=== PATIENT | male | born 1965 | race American Indian/Alaskan Native ===

== ENCOUNTER 2017-11-11 10:04 | Emergency (ER) | payer OTHER, BC ==
[2017-11-11] MEDS ORDERED: MOTRIN PO ONE (11:37)
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
[2017-11-11] MEDS ORDERED: CATAPRES PO ONE (11:46)
[2017-11-11 12:28] VITALS: BP 143/91
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
== END 2017-11-11 15:17 | disposition home or self-care (01) ==
LOC: ED 10:04
DX: S46.911A Strain of unspecified muscle, fascia and tendon at shoulder and upper arm level, right arm, initial encounter (principal); S13.4XXA Sprain of ligaments of cervical spine, initial encounter; S39.012A Strain of muscle, fascia and tendon of lower back, initial encounter; I10 Essential (primary) hypertension; E11.9 Type 2 diabetes mellitus without complications; F17.200 Nicotine dependence, unspecified, uncomplicated; V49.49XA Driver injured in collision with other motor vehicles in traffic accident, initial encounter; Y93.89 Activity, other specified; Y92.89 Other specified places as the place of occurrence of the external cause; Y99.8 Other external cause status
CPT/HCPCS: 72040; 72100

== ENCOUNTER 2019-08-24 14:15 | Emergency (ER) | payer BC, OTHER ==
--- NOTE | 2019-08-24 16:35 | Event Note ---
ED Screening Note Date of service: 08/24/19 Time: 16:34 ED Screening Note: This initial assessment/diagnostic orders/clinical plan/treatment(s) is/are subject to change based on patients health status, clinical progression and re- assessment by fellow clinical providers in the ED. Further treatment and workup at subsequent clinical providers discretion. Patient/guardian urged not to elope from the ED as their condition may be serious if not clinically assessed and managed. Initial orders include: 54yo M states that he was sent here due to a high bp reading at an urgent care. he states that he has not taken his medication for HTN or Type 2 DM.
[2019-08-24 17:03] LABS: Hematocrit 42.9 % (35.5-45.6); Hemoglobin 14.7 gm/dl (11.8-15.2); Mean Corpuscular HGB Conc 34 % (32-34); Mean Corpuscular Volume 101 fl (84-94); Platelet Count 216 K/mm3 (140-440); Red Blood Count 4.26 M/mm3 (3.65-5.03); Red Cell Distribution Width 13.1 % (13.2-15.2)
[2019-08-24 17:24] LABS: Alanine Aminotransferase 26 units/L (7-56); Albumin 4.4 g/dL (3.9-5); BUN/Creatinine Ratio 16; Blood Urea Nitrogen 23 mg/dL (9-20); Calcium 9.5 mg/dL (8.4-10.2); Hemolysis Index 6
--- NOTE | 2019-08-24 20:00 | Emergency Department Report ---
ED General Adult HPI - General Chief complaint: High BP Stated complaint: HBP Time Seen by Provider: 08/24/19 16:30 Source: patient Mode of arrival: Ambulatory Limitations: No Limitations - History of Present Illness Initial comments: Patient is a 54-year-old male presents emergency room with complaints of high blood pressure that occurred today. He states that he went to see his chiropractor and they told him that his blood pressure was elevated. He states that occasionally he does get blurry vision. He denies any headache, numbness, weakness, tingling, chest pain, shortness of breath. He denies any blurry vision currently. He has a past medical history of hypertension and diabetes. He states that due to loss of insurance he has not taken medications in 1 year. He states that he previously used to be on metformin and insulin for his di abetes. He states that he does not know what his blood pressure medication was. He states that lisinopril did cause swelling in him and he cannot take lisinopril. - Related Data Previous Rx's Medication Instructions Recorded Last Taken Type Cyclobenzaprine [Flexeril] 10 mg PO TID PRN #15 tablet 11/22/15 Unknown Rx Ibuprofen [Motrin 800 MG tab] 800 mg PO Q8HR PRN #30 tablet 11/22/15 Unknown Rx Cyclobenzaprine [Flexeril] 10 mg PO QHS PRN #10 tablet 11/11/17 Unknown Rx Ibuprofen [Motrin] 600 mg PO Q8H PRN #30 tablet 11/11/17 Unknown Rx amLODIPine [Norvasc] 5 mg PO DAILY #30 tab 11/11/17 Unknown Rx amLODIPine 10 mg PO DAILY #60 tab 08/24/19 Unknown Rx metFORMIN [Glucophage] 500 mg PO BID #120 tablet 08/24/19 Unknown Rx Allergies Allergy/AdvReac Type Severity Reaction Status Date / Time Penicillins AdvReac Unknown Verified 11/21/15 20:00 ED Review of Systems ROS: Stated complaint: HBP Other details as noted in HPI Comment: All other systems reviewed and negative ED Past Medical Hx - Past Medical History Previous Medical History?: Yes Hx Hypertension: Yes Hx Diabetes: Yes Hx Arthritis: Yes (GOUT) - Surgical History Past Surgical History?: Yes Hx Appendectomy: Yes Additional Surgical History: hernia repair - Social History Smoking Status: Current Some Day Smoker Substance Use Type: None - Medications Home Medications: Home Medications Medication Instructions Recorded Confirmed Last Taken Type Cyclobenzaprine [Flexeril] 10 mg PO TID PRN #15 tablet 11/22/15 Unknown Rx Ibuprofen [Motrin 800 MG tab] 800 mg PO Q8HR PRN #30 tablet 11/22/15 Unknown Rx Cyclobenzaprine [Flexeril] 10 mg PO QHS PRN #10 tablet 11/11/17 Unknown Rx Ibuprofen [Motrin] 600 mg PO Q8H PRN #30 tablet 11/11/17 Unknown Rx amLODIPine [Norvasc] 5 mg PO DAILY #30 tab 11/11/17 Unknown Rx amLODIPine 10 mg PO DAILY #60 tab 08/24/19 Unknown Rx metFORMIN [Glucophage] 500 mg PO BID #120 tablet 08/24/19 Unknown Rx ED Physical Exam - General Limitations: No Limitations General appearance: alert, in no apparent distress - Head Head exam: Present: atraumatic, normocephalic - Eye Eye exam: Present: normal appearance, PERRL, EOMI - ENT ENT exam: Present: mucous membranes moist - Respiratory Respiratory exam: Present: normal lung sounds bilaterally. Absent: respiratory distress, wheezes, rales, rhonchi, stridor, chest wall tenderness, accessory muscle use, decreased breath sounds, prolonged expiratory - Cardiovascular Cardiovascular Exam: Present: regular rate, normal rhythm, normal heart sounds. Absent: systolic murmur, diastolic murmur, rubs, gallop - Neurological Exam Neurological exam: Present: alert, oriented X3, CN II-XII intact, normal gait. Absent: motor sensory deficit - Psychiatric Psychiatric exam: Present: normal affect, normal mood - Skin Skin exam: Present: warm, dry, intact ED Course Vital Signs 08/24/19 08/24/19 14:59 20:13 Temperature 98.2 F Pulse Rate 91 H 75 Respiratory 18 17 Rate Blood Pressure 173/116 Blood Pressure 203/115 [Right] O2 Sat by Pulse 97 98 Oximetry ED Medical Decision Making - Lab Data Result diagrams: 08/24/19 16:45 08/24/19 16:45 Lab Results 08/24/19 08/24/19 Range/Units 16:45 16:45 WBC 4.3 L (4.5-11.0) K/mm3 RBC 4.26 (3.65-5.03) M/mm3 Hgb 14.7 (11.8-15.2) gm/dl Hct 42.9 (35.5-45.6) % MCV 101 H (84-94) fl MCH 35 H (28-32) pg MCHC 34 (32-34) % RDW 13.1 L (13.2-15.2) % Plt Count 216 (140-440) K/mm3 Sodium 137 (137-145) mmol/L Potassium 4.4 (3.6-5.0) mmol/L Chloride 99.3 (98-107) mmol/L Carbon Dioxide 23 (22-30) mmol/L Anion Gap 19 mmol/L BUN 23 H (9-20) mg/dL Creatinine 1.4 (0.8-1.5) mg/dL Estimated GFR > 60 ml/min BUN/Creatinine Ratio 16 % Glucose 224 H (75-100) mg/dL Calcium 9.5 (8.4-10.2) mg/dL Total Bilirubin 0.60 (0.1-1.2) mg/dL AST 32 (5-40) units/L ALT 26 (7-56) units/L Alkaline Phosphatase 72 (35-129) units/L Total Protein 7.5 (6.3-8.2) g/dL Albumin 4.4 (3.9-5) g/dL Albumin/Globulin Ratio 1.4 % - Medical Decision Making Patient is a 54-year-old male presents emergency room with complaints of high blood pressure that occurred today. He states that he went to see his chiropractor and they told him that his blood pressure was elevated. He states that occasionally he does get blurry vision. He denies any headache, numbness, weakness, tingling, chest pain, shortness of breath. He denies any blurry vision currently. He has a past medical history of hypertension and diabetes. He states that due to loss of insurance he has not taken medications in 1 year. He states that he previously used to be on metformin and insulin for his diabetes. He states that he does not know what his blood pressure medication was. He states that lisinopril did cause swelling in him and he cannot take lisinopril. Vitals with elevated blood pressure otherwise normal vitals. Patient currently has asymptomatic elevated blood pressure. According to the up-to-date medical literature it does not recommend emergently lowering asymptomatic blood pressure in the emergency department. Labs are stable. Kidney function is stable. No neurological deficits on exam. Blood sugar is 224. Patient given prescription for amlodipine and metformin. Patient does not need insulin at this time, will start patient on metformin for glycemic control at this time and have him follow-up with a primary care physician. Also discussed lifestyle modifications in detail with patient. advised pt Please take medication as prescribed. Please stop smoking. Increase your water intake. Please eat a low-sodium, low sugar, low carb diet. Incorporate 30 minutes of daily exercise. Please follow-up with a primary care doctor. Keep a blood pressure log and log your blood pressure 3 times a day. Please take this log to the primary care doctor. Return to the emergency room immediately for any new or worsening symptoms. Please follow-up with the appointment setter, due to your diabetes you need to have yearly eye screenings. Critical care attestation.: If time is entered above; I have spent that time in minutes in the direct care of this critically ill patient, excluding procedure time. 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 Please stop smoking. Increase your water intake. Please eat a low-sodium, low sugar, low carb diet. Incorporate 30 minutes of daily exercise. Please follow-up with a primary care doctor. Keep a blood pressure log and log your blood pressure 3 times a day. Please take this log to the primary care doctor. Return to the emergency room immediately for a ny new or worsening symptoms. Please follow-up with the appointment setter, due to your diabetes you need to have yearly eye screenings. Prescriptions: amLODIPine 10 mg PO DAILY #60 tab metFORMIN [Glucophage] 500 mg PO BID #120 tablet Referrals: ELA HANDLEY MD [Staff Physician] - 2-3 Days [facility] [Outside] - 2-[address] [facility] [Outside] - 2-3 Days [facility] [Provider Group] - 2-3 Days Time of Disposition: 20:00 Print Language: UKRAIN[place]
[2019-08-24 20:15] VITALS: BP 203/115
== END 2019-08-24 20:13 | disposition home or self-care (01) ==
LOC: ED 14:15
DX: I10 Essential (primary) hypertension (principal); E11.9 Type 2 diabetes mellitus without complications; M10.9 Gout, unspecified; F17.200 Nicotine dependence, unspecified, uncomplicated; Z98.890 Other specified postprocedural states; Z79.899 Other long term (current) drug therapy; Z79.4 Long term (current) use of insulin; Z88.0 Allergy status to penicillin; Z90.49 Acquired absence of other specified parts of digestive tract
CPT/HCPCS: 36415; 80053; 85027; 99283

== ENCOUNTER 2020-10-09 04:46 | Emergency (ER) | payer SELFPAY ==
[2020-10-09 07:28] LABS: Basophils % (Auto) 0.5 % (0.0-1.8); Hemoglobin 14.4 gm/dl (11.8-15.2); Lymphocytes # (Auto) 0.6 K/mm3 (1.2-5.4); Lymphocytes % (Auto) 9.6 % (13.4-35.0); Mean Corpuscular HGB Conc 35 % (32-34); Mean Corpuscular Volume 97 fl (84-94); Monocytes # (Auto) 0.2 K/mm3 (0.0-0.8); Monocytes % (Auto) 3.7 % (0.0-7.3); Platelet Count 237 K/mm3 (140-440); Red Blood Count 4.22 M/mm3 (3.65-5.03); Red Cell Distribution Width 13.7 % (13.2-15.2)
[2020-10-09 07:49] LABS: Alanine Aminotransferase 15 units/L (7-56); Albumin 4.4 g/dL (3.9-5); BUN/Creatinine Ratio 14; Blood Urea Nitrogen 14 mg/dL (9-20); Calcium 9.3 mg/dL (8.4-10.2); Hemolysis Index 5
[2020-10-09] MEDS ORDERED: ALUM-MAG HYDROXIDE-SIMETHICONE 200-200-20MG/5ML ORAL LIQD 30 ML PO ONE (11:11)
[2020-10-09] MEDS ORDERED: LIDOCAINE VISCOUS 2% 15 ML ORAL LIQD PO ONE (11:11)
[2020-10-09] MEDS ORDERED: ONDANSETRON 4 MG/2 ML INJ IV ONE (11:12)
--- NOTE | 2020-10-09 12:08 | Cat Scan Report ---
CT ABDOMEN AND PELVIS WITH CONTRAST INDICATION / CLINICAL INFORMATION: upper abdominal pain. TECHNIQUE: Axial CT images were obtained through the abdomen and pelvis after 100 mL Omni [address] scans at this location are performed using CT dose reduction for ALARA by means of automated expos ure control. COMPARISON: None available. FINDINGS: LOWER CHEST: No significant abnormality. LIVER: No significant abnormality. GALLBLADDER: No significant abnormality. BILE DUCTS: No significant abnormality. PANCREAS: No significant abnormality. SPLEEN: No significant abnormality. ADRENALS: No significant abnormality. RIGHT KIDNEY / URETER: No significant abnormality. LEFT KIDNEY / URETER: No significant abnormality. STOMACH / SMALL BOWEL: No significant abnormality. No mechanical bowel obstruction or significant inf lammation. COLON: Mild colonic diverticulosis without diverticulitis. APPENDIX: No significant abnormality. PERITONEUM: No free fluid. No free air. No fluid collection. LYMPH NODES: No significant adenopathy. AORTA / ARTERIES: Mild atherosclerotic calcification without acute abnormality. IVC / VEINS: No significant abnormality. URINARY BLADDER: No significant abnormality. REPRODUCTIVE ORGANS: No significant abnormality. ADDITIONAL FINDINGS: None. SKELETAL SYSTEM: Mild multilevel degenerative changes are noted of the spine most prominent at L5-S1. No aggressive osseous lesions. Mild bilateral hip arthrosis. IMPRESSION: 1. No acute inflammatory process of the abdomen or pelvis. 2. Mild diverticulosis without diverticulitis. Signer Name: Kayode Ibarra MD Signed: 10/09/2020 12:03 PM Workstation Name: [id number]
[2020-10-09 13:08] LABS: Bilirubin,Urine NEG (Negative); Blood,Urine NEG (Negative); Color,Urine Straw (Yellow); Urobilinogen,Urine < 2.0 mg/dL (<2.0); WBC,Urine < 1.0 /HPF (0.0-6.0)
--- NOTE | 2020-10-09 14:11 | Emergency Department Report ---
ED Abdominal Pain HPI - General Chief Complaint: Abdominal Pain Stated Complaint: TROUBLE BREATHING/STOMACH PAIN Time Seen by Provider: 10/09/20 11:02 Source: patient Mode of arrival: Ambulatory Limitations: No Limitations - History of Present Illness Initial Comments: 55-year-old male, history of hypertension, diabetes, gout, presents to ED with epigastric pain since last night. Patient states the pain started after eating some spicy chicken wings. Patient states he feels like he has a knot in his upper abdomen that is cutting his breath short secondary to the pain. When the pain eases up he is able to breathe okay. States the pain feels sharp in nature. He reports some nausea and vomiting, denies fever or diarrhea. Denies any radiating pain. Blood pressure is elevated, patient states he has been compliant with his medication but has not taken it this morning because he was in the waiting room all night. MD Complaint: abdominal pain -: Last night Location: epigastric Radiation: none Migration to: no migration Severity: moderate Quality: sharp Consistency: constant Improves With: nothing Worsens With: nothing Associated Symptoms: nausea, vomiting. denies: diarrhea, fever - Related Data Previous Rx's Medication Instructions Recorded Last Taken Type Cyclobenzaprine [Flexeril] 10 mg PO TID PRN #15 tablet 11/22/15 Unknown Rx Ibuprofen [Motrin 800 MG tab] 800 mg PO Q8HR PRN #30 tablet 11/22/15 Unknown Rx Cyclobenzaprine [Flexeril] 10 mg PO QHS PRN #10 tablet 11/11/17 Unknown Rx Ibuprofen [Motrin] 600 mg PO Q8H PRN #30 tablet 11/11/17 Unknown Rx amLODIPine [Norvasc] 5 mg PO DAILY #30 tab 11/11/17 Unknown Rx amLODIPine 10 mg PO DAILY #60 tab 08/24/19 Unknown Rx metFORMIN [Glucophage] 500 mg PO BID #120 tablet 08/24/19 Unknown Rx Dicyclomine [Bentyl] 20 mg PO QID PRN #20 tablet 10/09/20 Unknown Rx Ondansetron [Zofran Odt] 4 mg PO Q8HR PRN #20 tab.rapdis 10/09/20 Unknown Rx Pantoprazole [Protonix TAB] 20 mg PO QDAY #30 tablet 10/09/20 Unknown Rx Allergies Allergy/AdvReac Type Severity Reaction Status Date / Time Penicillins AdvReac Unknown Verified 11/21/15 20:00 ED Review of Systems ROS: Stated complaint: TROUBLE BREATHING/STOMACH PAIN Other details as noted in HPI Comment: All other systems reviewed and negative Constitutional: denies: fever Respiratory: shortness of breath. denies: cough Cardiovascular: denies: chest pain Gastrointestinal: abdominal pain, nausea, vomiting. denies: diarrhea ED Past Medical Hx - Past Medical History Previous Medical History?: Yes Hx Hypertension: Yes Hx Diabetes: Yes Hx Arthritis: Yes (GOUT) - Surgical History Past Surgical History?: Yes Hx Appendectomy: Yes Additional Surgical History: hernia repair - Social History Smoking Status: Never Smoker Substance Use Type: None - Medications Home Medications: Home Medications Medication Instructions Recorded Confirmed Last Taken Type Cyclobenzaprine [Flexeril] 10 mg PO TID PRN #15 tablet 11/22/15 Unknown Rx Ibuprofen [Motrin 800 MG tab] 800 mg PO Q8HR PRN #30 tablet 11/22/15 Unknown Rx Cyclobenzaprine [Flexeril] 10 mg PO QHS PRN #10 tablet 11/11/17 Unknown Rx Ibuprofen [Motrin] 600 mg PO Q8H PRN #30 tablet 11/11/17 Unknown Rx amLODIPine [Norvasc] 5 mg PO DAILY #30 tab 11/11/17 Unknown Rx amLODIPine 10 mg PO DAILY #60 tab 08/24/19 Unknown Rx metFORMIN [Glucophage] 500 mg PO BID #120 tablet 08/24/19 Unknown Rx Dicyclomine [Bentyl] 20 mg PO QID PRN #20 tablet 10/09/20 Unknown Rx Ondansetron [Zofran Odt] 4 mg PO Q8HR PRN #20 tab.rapdis 10/09/20 Unknown Rx Pantoprazole [Protonix TAB] 20 mg PO QDAY #30 tablet. 10/09/20 Unknown Rx ED Physical Exam - General Limitations: No Limitations General appearance: alert, in no apparent distress - Head Head exam: Present: atraumatic, normocephalic - Eye Eye exam: Present: normal appearance, EOMI - ENT ENT exam: Present: mucous membranes moist - Neck Neck exam: Present: normal inspection - Respiratory Respiratory exam: Present: normal lung sounds bilaterally. Absent: respiratory distress - Cardiovascular Cardiovascular Exam: Present: regular rate, normal rhythm - GI/Abdominal GI/Abdominal exam: Present: soft, tenderness (Epigastric). Absent: distended - Extremities Exam Extremities exam: Present: normal inspection - Neurological Exam Neurological exam: Present: alert, oriented X3 - Psychiatric Psychiatric exam: Present: normal affect, normal mood - Skin Skin exam: Present: warm, dry, intact, normal color ED Course Vital Signs 10/09/20 10/09/20 10/09/20 06:08 13:56 14:54 Temperature 97.8 F 98.6 F 98.8 F Pulse Rate 64 75 73 Respiratory 18 18 18 Rate Blood Pressure 182/102 169/98 Blood Pressure 175/108 [Right] O2 Sat by Pulse 99 97 99 Oximetry ED Medical Decision Making - Lab Data Result diagrams: 10/09/20 07:04 10/09/20 07:04 - EKG Data -: EKG Interpreted by Me EKG shows normal: sinus rhythm, axis, intervals, QRS complexes, ST-T waves Rate: normal - EKG Data Interpretation: no acute changes - Radiology Data Radiology results: report reviewed, image reviewed - Medical Decision Making 55-year-old male presents to ED with upper abdominal pain since last night. Gregorio phipps states pain began after eating some hot wings. He denies any history of GERD in the past. EKG is normal, troponin is negative. Labs are unremarkable. Patient has some mild epigastric tenderness on exam. Patient reports relief with GI cocktail. CT abdomen pelvis shows no acute findings. Patient will be discharged home with prescriptions. Outpatient follow-up advised with GI. Return precautions given. - Differential Diagnosis Pancreatitis, GERD, bowel obstruction, ACS Critical care attestation.: If time is entered above; I have spent that time in minutes in the direct care of this critically ill patient, excluding procedure time. ED Disposition Clinical Impression: Abdominal pain, Hyperglycemia Disposition: DC-01 TO HOME OR SELFCARE Is pt being admited?: No Condition: Stable Instructions: Food Choices for Gastroesophageal Reflux Disease, Adult, Abdominal Pain, Adult, [id number], Gastroesophageal Reflux Disease, Adult Prescriptions: Dicyclomine [Bentyl] 20 mg PO QID PRN #20 tablet PRN Reason: abdominal pain Pantoprazole [Protonix TAB] 20 mg PO QDAY #30 tablet. Ondansetron [Zofran Odt] 4 mg PO Q8HR PRN #20 tab.rapdis PRN Reason: Vomiting Referrals: PRIMARY CARE, [Primary Care Provider] - 3-5 Days [facility] [Provider Group] - 3-5 Days Time of Disposition: 14:13
[2020-10-09 15:00] VITALS: BP 169/98
--- NOTE | 2020-10-11 17:49 | Electrocardiograph Report ---
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
== END 2020-10-09 15:10 | disposition home or self-care (01) ==
LOC: ED 04:46
DX: E11.65 Type 2 diabetes mellitus with hyperglycemia (principal); R10.13 Epigastric pain; I10 Essential (primary) hypertension; M10.9 Gout, unspecified; Z90.49 Acquired absence of other specified parts of digestive tract; Z79.899 Other long term (current) drug therapy; Z88.0 Allergy status to penicillin; Z98.890 Other specified postprocedural states
CPT/HCPCS: 36415; 74177; 80053; 81001; 83690; 84484; 85025; 93005; 96374; 99284; J2405; Q9967